=== PATIENT | female | born 2000 | race Caucasian/White ===

== ENCOUNTER 2020-10-01 22:50 | Emergency (ER) | payer MEDICAID ==
[2020-10-01] MEDS ORDERED: SODIUM CHLORIDE 0.9% (FLUSH) 10 ML SYG IV PRN (22:52)
--- NOTE | 2020-10-01 22:53 | ED.PDOC ---
History of Present Illness - General Time Seen by Provider: 10/01/20 22:52 Source: patient - History of Present Illness Initial Comments: 20 yo female who presents with cc of chest tightness and dyspnea. Reported rapid onset of symptoms initially around 5 PM this evening while at rest. Reports feeling of heaviness throughout her chest which was constant, moderate severity, associated also with mild dyspnea and occasional fluttering in her chest. She checked her heart rate on her apple watch which was in the 40s. Symptoms seem to improved but then recurred around 6 PM shortly after taking another dose of hydrocodone. The patient reports she recently underwent vaginal delivery of her baby 5 days ago at [facility] (Dr. Camilo). Report full term vaginal delivery of a 10 lb healthy baby girl. Reports healthy care, delivery, and course until now. Only on vitamin during . Reports was discharged from the hospital 3 days ago and has been taking hydrocodone q4h since then for pain control. Also taking stool softeners and Miralax. Reports last BM was 1 day ago and normal. Lochia is slowing and abdmominal pain improving. Reports she did have an epidural and has been occasionally having intermittent sharp brief pains near the insertion site. Rates overall abdominal/back pain currently as 5/10 severity. Otherwise denies any fevers, chills, cough, n/v/d, urinary sx's, leg swelling. Denies any prior cardiac hx or hx of DVT. Otherwise is a healthy individual and takes no daily medications. Allergies/Adverse Reactions: Allergies NO KNOWN ALLERGY Allergy (Verified 10/01/20 22:57) Home Medications: Ambulatory Orders Hydrocodone-Acetaminophen [[place] 5-325 mg] 1 tablet PO Q4HR PRN 10/01/20 Ibuprofen 800 mg PO BID PRN 10/01/20 Vit W/ Ferrous Fumara [] 1 tablet PO DAILY 10/01/20 Review of Systems - Review of Systems Review of Systems: 10/01/20 23:16 as per HPI All other Systems: Reviewed and Negative Family Medical History - Family History Mother Family History: No Known Physical Exam - Physical Exam General Appearance: Alert, Comfortable, No apparent distress Eye Exam: bilateral normal Ears, Nose, Throat: hearing grossly normal, normal ENT inspection, normal pharynx Neck: non-tender, full range of motion, supple, normal inspection Respiratory: chest non-tender, lungs clear, normal breath sounds, no respiratory distress, no accessory muscle use Cardiovascular/Chest: normal peripheral pulses, regular rate, rhythm, no edema, no gallop, no JVD, no murmur Peripheral Pulses: radial,right: 2+, radial,left: 2+ Gastrointestinal/Abdominal: soft, distended - c/w patient, tenderness - mild generalized lower abd ttp, c/w patient Back Exam: normal inspection, no CVA tenderness, no vertebral tenderness Extremity: normal range of motion, non-tender, normal inspection, no pedal edema, no calf tenderness, normal capillary refill 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 Consider also MSK/inflammatory chest wall pain, GERD, anxiety, PNA, constipation, cardiomyopathy, PE, hypertensive urgency, other -pt noted to have initial BP 180s/100s on arrival, SpO2 100% RA, afebrile, pt NAD -obtain stat cardiac work-up, bloodwork, XR chest & abdomen, UA -place PIV, IV antihypertensives if BP remains severely elevated 10/02/20 00:24 -Labwork pertinent for d-dimer elevated 5000 (likely from recent vaginal delivery/continued normal bleeding). Otherwise unremarkable. CTA chest was obtained which revealed no acute processes or evidence of PE. -Patient remained stable during the ED observation with no return of symptoms. Her blood pressure improved to 130s/80s with rest alone. She was noted to resting basal heart rate of 45-55, sinus bradycardia. I suspect this may likely be heard normal resting basal heart rate or possibly as a side effect from the hydrocodone. There does not appear to be any emergent etiology of her symptoms. I advised that she begin tapering the hydrocodone. We will discharge to home in good condition. Advised close follow-up with PCP and DERMATOLOGY PROCEDURAL PHYSICIAN next week. Return warnings discussed at length. Gal Barillas MD Billing #[id number] 10/01/20 22:52 IV Care:Saline Lock per Protoc QSHIFT Telemetry .ONCE Sodium Chloride 0.9% (Flush) [Saline Flush Syringe] 10 ml IV PRN PRN EKG Assessment ONCE Pulse Oximetry Assessment DAILY UA [URINALYSIS] Stat 10/01/20 23:00 EKG STAT 10/02/20 09:00 Pulse Ox Daily Laboratory Results - last 24 hr 10/01/20 10/01/20 10/01/20 23:00 23:00 23:00 WBC 7.0 RBC 3.94 L Hgb 12.2 Hct 35.5 L MCV 90.1 MCH 31.1 H MCHC 34.4 RDW 14.5 Plt Count 165 MPV 8.7 Absolute Neuts (auto) 4.30 Absolute Lymphs (auto) 1.80 Absolute Monos (auto) 0.60 Absolute Eos (auto) 0.20 Absolute Basos (auto) 0.10 Neutrophils % 62.0 Lymphocytes % 26.2 Monocytes % 8.7 Eosinophils % 2.2 Basophils % 0.9 D-Dimer, Quantitative 5000.0 H* Sodium 140 Potassium 3.9 Chloride 104 Carbon Dioxide 27 Anion Gap 12.9 BUN 10 Creatinine 0.76 BUN/Creatinine Ratio 13.2 Random Glucose 77 Serum Osmolality 277.2 Calcium 8.7 Magnesium Troponin I TSH 10/01/20 10/01/20 23:00 23:00 WBC RBC Hgb Hct MCV MCH MCHC RDW Plt Count MPV Absolute Neuts (auto) Absolute Lymphs (auto) Absolute Monos (auto) Absolute Eos (auto) Absolute Basos (auto) Neutrophils % Lymphocytes % Monocytes % Eosinophils % Basophils % D-Dimer, Quantitative Sodium Potassium Chloride Carbon Dioxide Anion Gap BUN Creatinine BUN/Creatinine Ratio Random Glucose Serum Osmolality Calcium Magnesium 1.9 Troponin I < 0.02 TSH 3.04 - EKG/XRAY/CT EKG: Michael - Sinus bradycardia, heart rate 45, no ST elevations or Q waves noted, T wave inversions noted in V2 which is nonspecific, axis normal, intervals normal, no prior EKG for comparison., Sinus XRAY: chest - no acute processes per my read Departure - Departure Clinical Impression: Side effect of medication Time of Disposition: 00:24 Disposition: Discharge to Home or Self Care Condition: Good Departure Forms: ED Discharge - Pt. Copy, Patient Portal Self Enrollment Instructions: Chest Pain That Is Not Caused by the Heart (DC), Chest Pain (DC) Diet: resume usual diet Activity: increase activity as tolerated Referrals: Debbie,Racheal Shilpa, INTERNAL MEDICINE VETERINARY TECHNICIAN [Primary Care Provider] - 1-2 Weeks Home Medications: Ambulatory Orders Hydrocodone-Acetaminophen [[place] 5-325 mg] 1 tablet PO Q4HR PRN 10/01/20 Ibuprofen 800 mg PO BID PRN 10/01/20 Vit W/ Ferrous Fumara [] 1 tablet PO DAILY 10/01/20 Additional Instructions: Remain well-hydrated and gradually advance your diet activity level as tolerated. Continue taking [id number] analgesics for pain and inflammation control such as Tylenol 650 mg every 6 hours as needed and ibuprofen 600 mg every 6 hours as needed. It is advised that you begin tapering your hydrocodone pain medication as it is felt to likely be causing/contributing to your acute symptoms. I suggest that you space the pain medications to every 6-8 hours as needed for the next couple of days and then to every 8-12 hours as needed after that until you are able to quit taking the medication. It is advised that you follow-up closely with your primary care doctor and DERMATOLOGY PROCEDURAL PHYSICIAN in the next 5 to 7 days for repeat evaluation or sooner as needed. Your blood pressure was noted to be briefly elevated during this ED visit which will need to be rechecked in the clinic.
--- NOTE | 2020-10-01 23:28 | RAD ---
EXAM DESCRIPTION: Chest,1 View CLINICAL HISTORY: 20 years Female, chest tightness COMPARISON: None TECHNIQUE: Single AP chest radiograph. FINDINGS: Clear lungs. No pneumothorax or pleural effusion. Normal cardiomediastinal contour. Normal osseous structures. IMPRESSION: 1. No acute cardiopulmonary process. Electronically signed by: Chinmay Dockery MD 10/01/2020 11:27 PM ELECTRICAL ENGINEERING TECHNICIAN
--- NOTE | 2020-10-01 23:32 | RAD ---
EXAM: XR Abdomen, 1 View CLINICAL HISTORY: The patient is 20 years old and is Female; abdominal distension, frequent pain meds TECHNIQUE: Frontal supine view of the abdomen/pelvis. COMPARISON: No relevant prior studies available. FINDINGS: Gastrointestinal tract: Unremarkable. No dilation. Bones/joints: Unremarkable. IMPRESSION: Normal abdominal x-ray. Electronically signed by: Blayne Adams MD 10/01/2020 11:30 PM [facility]
[2020-10-01] MEDS ORDERED: SODIUM CHLORIDE 0.9% 500ML 500 ML IVS ONE (23:43)
--- NOTE | 2020-10-02 00:19 | CT ---
EXAM: CTA Chest HISTORY: dyspnea, chest tightness, elevated d-dimer COMPARISON: 10/01/2020 TECHNIQUE: Contiguous axial CTA images of the chest were obtained from the thoracic inlet to the upper abdomen after administration of intravenous contrast followed by multiplanar reformats. 3-D postprocessing was performed. This exam was performed according to our departmental dose-optimization program, which includes automated exposure control, adjustment of the mA and/or kV according to patient size and/or use of iterative reconstruction technique. FINDINGS: There is adequate opacification of the pulmonary arterial vasculature. There is no evidence of pulmonary embolus. Heart size normal. No evidence of right heart strain. No pericardial effusion. No mediastinal adenopathy. Central airways are patent. Great vessels are normal. Clear lungs. No pneumothorax or pleural effusion. Limited visualization of upper abdominal contents is unremarkable for an acute process. No destructive osseous lesion. IMPRESSION: 1. No evidence of pulmonary embolus or other acute cardiopulmonary process. Electronically signed by: Chinmay Dockery MD 10/02/2020 12:18 AM RESEARCH HYDRAULIC ENGINEER
[2020-10-02 00:42] VITALS: BP 150/86; O2SAT 97
[2020-10-02 00:45] VITALS: TEMP 97.9
== END 2020-10-02 00:52 | disposition home or self-care (01) ==
LOC: ER 22:50
DX: R07.89 Other chest pain (principal); R06.00 Dyspnea, unspecified; T40.2X5A Adverse effect of other opioids, initial encounter; R00.1 Bradycardia, unspecified; Z20.828 Contact with and (suspected) exposure to other viral communicable diseases
CPT/HCPCS: 71045; 71275; 74018; 80048; 83735; 84443; 84484; 85025; 85379; 87502; 87635; 93005; J7040